=== PATIENT | male | born 1950 ===

== ENCOUNTER → 2019-01-28 | Outpatient (CLI) | payer MEDICARE, BC | LOC: DL.CLIN 09:30 | PROVIDERS: ATTEND Physician Assistant Medical | DX: D50.9 Iron deficiency anemia, unspecified (principal); E55.9 Vitamin D deficiency, unspecified | CPT/HCPCS: 36415; 82306; 82728; 83540; 83550; 85025; 99213 ==

== ENCOUNTER 2024-05-25 07:57 | Day surgery (SDC) | payer MEDICARE, BC ==
[2024-05-25] MEDS ORDERED: Ondansetron 4 MG/2 ML SDV IVPUSH PRN (08:00)
[2024-05-25] MEDS ORDERED: Acetaminophen/Codeine 300-30 MG Tab PO PRN (08:00)
[2024-05-25] MEDS ORDERED: Acetaminophen 325 MG Tab PO PRN (08:00)
[2024-05-25] MEDS: Sodium Chloride 0.9% 10 ML Syringe FLUSH PRN (08:32)
[2024-05-25] MEDS: Proparacaine 0.5% Ophth Soln 15 ML Bottle EYELF ONE ×2 (08:33→09:41)
[2024-05-25] MEDS: Moxifloxacin 0.5% Ophth Soln 3 ML Bottle EYELF ONE (08:33)
[2024-05-25] MEDS: Povidone-Iodine 5% Sterile Ophth Soln 30 ML Bottle EYELF ONE ×2 (08:34→09:41)
[2024-05-25] MEDS: Tropicamide 1% Ophth Soln 15 ML Bottle EYELF ONE (08:35)
[2024-05-25] MEDS: Timolol Maleate 0.5% Ophth Soln 5 ML Bottle EYELF ONE (08:35)
[2024-05-25] MEDS: Phenylephrine 10% Ophth Soln 5 ML Bot EYELF ONE (08:35)
[2024-05-25] MEDS: Cataract Ophth Solution EYELF ONE (08:36)
[2024-05-25] MEDS: Apraclonidine 0.5% Ophth Soln 5 ML Bot EYELF ONE (09:42)
[2024-05-25] MEDS: Dexamethasone/Neomycin/Polymyxin B Ophth Oint 3.5 GM Tube EYELF ONE (09:43)
[2024-05-25] MEDS: Vancomycin 500 MG SDV EYELF ONE (09:45)
[2024-05-25] MEDS: Lidocaine 1% 30 ML SDV ONE (09:45)
[2024-05-25 10:34] VITALS: BP 184/78; PULSE 71
== END 2024-05-25 10:22 | disposition home or self-care (01) ==
LOC: DL.SDS 07:57
PROVIDERS: ATTEND Ophthalmology
DX: H25.812 Combined forms of age-related cataract, left eye (principal); I10 Essential (primary) hypertension; E03.9 Hypothyroidism, unspecified; E78.5 Hyperlipidemia, unspecified; D50.9 Iron deficiency anemia, unspecified; Z87.891 Personal history of nicotine dependence; Z79.899 Other long term (current) drug therapy
CPT/HCPCS: A9270-GY; J3370; J3490

== ENCOUNTER → 2024-06-08 | Day surgery (SDC) | payer MEDICARE, BC ==
[~2024-06-08] MED LIST: Acetaminophen 325 MG Tab PO PRN; Acetaminophen/Codeine 300-30 MG Tab PO PRN; Ondansetron 4 MG/2 ML SDV IVPUSH PRN
[2024-06-08] MEDS: Proparacaine 0.5% Ophth Soln 15 ML Bottle EYERT ONE ×3 (07:13→08:50)
[2024-06-08] MEDS: Povidone-Iodine 5% Sterile Ophth Soln 30 ML Bottle EYERT ONE ×3 (07:13→08:50)
[2024-06-08] MEDS: Lidocaine 1% 30 ML SDV ONE ×2 (07:14→09:03)
[2024-06-08] MEDS: Apraclonidine 0.5% Ophth Soln 5 ML Bot EYERT ONE ×2 (07:14→09:05)
[2024-06-08] MEDS: Diclofenac Sodium 0.1% Ophth Soln 5 ML Bottle EYERT ONE ×2 (07:15→09:06)
[2024-06-08] MEDS: Vancomycin 500 MG SDV EYERT ONE ×2 (07:16→09:03)
[2024-06-08] MEDS: Dexamethasone/Neomycin/Polymyxin B Ophth Oint 3.5 GM Tube EYERT ONE ×2 (07:16→09:06)
[2024-06-08 08:18] VITALS: PULSE 76
[2024-06-08] MEDS: Moxifloxacin 0.5% Ophth Soln 3 ML Bottle EYERT ONE (08:35)
[2024-06-08] MEDS: Phenylephrine 10% Ophth Soln 5 ML Bot EYERT ONE (08:36)
[2024-06-08] MEDS: Tropicamide 1% Ophth Soln 15 ML Bottle EYERT ONE (08:36)
[2024-06-08] MEDS: Timolol Maleate 0.5% Ophth Soln 5 ML Bottle EYERT ONE (08:37)
[2024-06-08] MEDS: Cataract Ophth Solution EYERT ONE (08:37)
[2024-06-08] MEDS: Sodium Chloride 0.9% 10 ML Syringe FLUSH PRN (08:37)
[2024-06-08 09:39] VITALS: BP 169/93
== END ==
LOC: DL.SDS 08:00
PROVIDERS: ATTEND Ophthalmology
DX: H25.811 Combined forms of age-related cataract, right eye (principal); I10 Essential (primary) hypertension; E78.5 Hyperlipidemia, unspecified; D50.9 Iron deficiency anemia, unspecified; Z88.8 Allergy status to other drugs, medicaments and biological substances; Z87.891 Personal history of nicotine dependence
CPT/HCPCS: 66984; A9270; J3370; V2787; J3490